=== PATIENT | female | born 1965 | race Caucasian/White ===

== ENCOUNTER 2018-11-22 18:57 | Inpatient (IN) | payer MEDICARE, MEDICAID ==
[~2018-11-22] VITALS: Ht 160 cm; Wt 71.8 kg
[~2018-11-22 18:57] MED LIST: CANA300T PO; GLIM4TAB4 PO; HUM7525 SQ; LEVO150T PO; LISI-640 PO; LOVA10TA PO; OXYC-145 PO
[2018-11-22] MEDS ORDERED: normal saline 1000ML IV soln IVB ONE ×2 (19:15→21:05)
[2018-11-22] MEDS ORDERED: diltiazem 5mg/ml 5ml inj. IV ONE (19:25)
[2018-11-22 19:34] LABS: BASOPHILS % (AUTO) 0.2 % (0-1); EOSINOPHILS % (AUTO) 0.4 % (0-6); HEMATOCRIT 38.7 % (35.0-45.0); LYMPHOCYTES # (AUTO) 1.5 X10'3 (1.1-4.8); LYMPHOCYTES % (AUTO) 11.5 % (21-51); MEAN CORPUSCULAR HEMOGLOBIN 29.9 PG (27.0-31.0); MEAN CORPUSCULAR HGB CONC 33.5 g/dL (33.0-36.5); MEAN CORPUSCULAR VOLUME 89.3 FL (78-98); MEAN PLATELET VOLUME 7.9 FL (7.4-10.4); MONOCYTES % (AUTO) 8.1 % (2-12); NEUTROPHILS # (AUTO) 10.3 X10'3 (1.8-7.7); NEUTROPHILS % (AUTO) 79.8 % (42-75); PLATELET COUNT 238 X10'3 (140-440); RED BLOOD COUNT 4.33 X10'6 (4.20-5.60); RED CELL DISTRIBUTION WIDTH 11.9 % (11.5-14.5)
[2018-11-22 19:47] LABS: ALANINE AMINOTRANSFERASE 42 U/L (12-78); ALBUMIN 3.3 G/DL (3.4-5.0); ALBUMIN/GLOBULIN RATIO 0.7 (1.1-1.5); ALKALINE PHOSPHATASE 90 IU/L (46-116); ANION GAP 10 (8-16); ASPARTATE AMINO TRANSFERASE 20 U/L (10-37); BILIRUBIN,TOTAL 0.4 MG/DL (0.1-1.0); BLOOD UREA NITROGEN 24 MG/DL (7-18); BUN/CREATININE RATIO 26.7 (6.6-38.0); CALCIUM 9.5 MG/DL (8.5-10.1); CHLORIDE 102 MMOL/L (99-107); GLUCOSE 158 MG/DL (70-104); POTASSIUM 3.6 MMOL/L (3.5-5.1); SODIUM 141 MMOL/L (135-145); TOTAL CARBON DIOXIDE 28.6 MMOL/L (24-32); TOTAL PROTEIN 8.3 G/DL (6.4-8.2); eGFR 66 ML/MIN
--- NOTE | 2018-11-22 20:10 | NUR ---
pt up to bsc to void. mod assist required.
[2018-11-22] MEDS ORDERED: CefTRIAXone 2gm/D5W 50ml 50 ML IV ONE (20:25)
[2018-11-22] MEDS ORDERED: diltiazem-D5W 125mg/125ml 125 ML IV SCH (20:25)
[2018-11-22] MEDS ORDERED: diltiazem-NS 100mg/100ml 125 ML IV SCH (20:28)
[2018-11-22] MEDS ORDERED: diltiazem-NS 100mg/100ml 100 ML IV SCH (20:41)
[2018-11-22 21:06] LABS: CLARITY,URINE CLOUDY (Clear); COLOR,URINE YELLOW (Yellow); GLUCOSE, URINE 100 mg/dl (Neg); KETONES,URINE NEGATIVE (Neg); LEUKOCYTE ESTERASE ,URINE SMALL (Neg); NITRITES, URINE NEGATIVE (Neg); OCCULT BLOOD,URINE MODERATE (Neg); PH,URINE 5.5 (4.8-8.0); PROTEIN,URINE TRACE mg/dl (Neg); UROBILINOGEN,URINE 0.2 E.U/dL (0.2-1.0)
[2018-11-22 21:09] LABS: UA COLLECTION TYPE OTHER
[2018-11-22 21:12] LABS: BACTERIA,URINE 3+ /HPF (Neg); MUCUS STRANDS NONE SEEN /LPF (Neg); SQUAMOUS EPITHELIAL CELL,UR MODERATE /LPF (FEW); WBC,URINE 30-50 /HPF (0-4)
[2018-11-22] MEDS ORDERED: normal saline 1000ML IV soln IV ONE (21:30)
[2018-11-22] MEDS ORDERED: GLIM2TAB3 PO (21:38)
[2018-11-22] MEDS ORDERED: METO25TA6 PO (21:38)
[2018-11-22] MEDS ORDERED: MELA3TAB64 PO (21:38)
[2018-11-22] MEDS ORDERED: ATOR-2 PO (21:38)
[2018-11-22] MEDS ORDERED: BACL20TA7 PO (21:38)
[2018-11-22] MEDS ORDERED: OXYC5TAB2 PO (21:38)
[2018-11-22] MEDS ORDERED: DOCU-267 PO (21:38)
[2018-11-22] MEDS ORDERED: LEVO112T5 PO (21:38)
[2018-11-22] MEDS ORDERED: ASPI-1130 PO (21:38)
--- NOTE | 2018-11-22 21:39 | NUR ---
PT TO BE ADMITTED , NOW AWAITING HOSPITALIST. LARISA GAVIRIA IN TO SPEAK WITH PT AND ABOUT ADMISSION. PT RECEIVING CARDIZIEM GTT AND HR REMAINS 120. PROVIDER REPORTS HE WILL DC THE CARDIZIEM HE BELIEVES THE CAUSE OF HER TACHYCARDIA IS INFECTION AND UTI. GTT STOPPED. PT RECEIVING RECEFIN. REMAINS AT [facility].
[2018-11-22] MEDS ORDERED: dextrose 50%-water 50ml dispensing syringe IV PRN ×2 (23:20)
[2018-11-22] MEDS ORDERED: magnesium hydroxide 30ml (MOM) UD suspension PO PRN (23:20)
[2018-11-22] MEDS ORDERED: oxyCODONE IR 5mg (immed. release) tablet PO PRN (23:20)
[2018-11-22] MEDS ORDERED: dextrose ORAL solution 15 GM/59 ML bottle PO PRN ×2 (23:20)
[2018-11-22] MEDS ORDERED: glucagon, human recombinant 1mg kit SUBCUT PRN (23:20)
[2018-11-22] MEDS ORDERED: acetaminophen 325mg tablet PO PRN (23:20)
[2018-11-22] MEDS ORDERED: ondansetron/PF 4mg/2ml inj IV PRN (23:20)
[2018-11-22] MEDS ORDERED: MESSAGE TO PHARMACY PO ONE (23:20)
[2018-11-22] MEDS ORDERED: mag hydrox/Alum hydrox/simeth 30ml oral suspension PO PRN (23:20)
[2018-11-22 23:46] LABS: HEMOGLOBIN A1C 6.6 % (4.5-6.2)
[2018-11-23] VITALS (7 sets, daily range): BP systolic 112–160; BP diastolic 76–93
[2018-11-23] MEDS: normal saline 1000ml 1,000 ML IV SCH ×2 (00:13→09:29)
--- NOTE | 2018-11-23 01:30 | NUR ---
I have received report from DENISSE Carvajal in ER and had the opportunity to ask questions and assume patient care. Awaiting patient arrival to PCU.
--- NOTE | 2018-11-23 03:54 | NUR ---
Patient arrived to PCU via gurney from ED. Patient ambulated from gurney to bed with 2 person assist due to right sided deficits from past stroke 3 years ago. Patient on room air, placed on telemetry unit 40, and is stable at this time. Patient states she is very tired and would like to answer DART questions tomorrow when more rested and is here.
[2018-11-23] MEDS ORDERED: LORazepam 2 mg/ml vial IV PRN (06:10)
--- NOTE | 2018-11-23 06:10 | NUR ---
Patient in room PCU 3015. I have received report from Martha SALCEDO and had the opportunity to ask questions and assume patient care.
[2018-11-23 06:35] LABS: BASOPHILS % (AUTO) 0.2 % (0-1); EOSINOPHILS % (AUTO) 0.3 % (0-6); HEMATOCRIT 36.9 % (35.0-45.0); HEMOGLOBIN 12.6 g/dl (12.0-16.0); LYMPHOCYTES # (AUTO) 2.3 X10'3 (1.1-4.8); LYMPHOCYTES % (AUTO) 29.8 % (21-51); MEAN CORPUSCULAR HEMOGLOBIN 30.4 PG (27.0-31.0); MEAN CORPUSCULAR HGB CONC 34.1 g/dL (33.0-36.5); MEAN CORPUSCULAR VOLUME 89.2 FL (78-98); MEAN PLATELET VOLUME 7.9 FL (7.4-10.4); MONOCYTES # (AUTO) 0.5 X10'3 (0-0.9); MONOCYTES % (AUTO) 6.2 % (2-12); NEUTROPHILS # (AUTO) 4.8 X10'3 (1.8-7.7); NEUTROPHILS % (AUTO) 63.5 % (42-75); PLATELET COUNT 225 X10'3 (140-440); RED BLOOD COUNT 4.14 X10'6 (4.20-5.60); RED CELL DISTRIBUTION WIDTH 11.8 % (11.5-14.5); WHITE BLOOD COUNT 7.6 X10'3 (4.5-11.0)
--- NOTE | 2018-11-23 06:53 | NUR ---
Problems reprioritized. Patient report given, questions answered & plan of care reviewed with DENISSE Thomas.
[2018-11-23 07:10] LABS: ALANINE AMINOTRANSFERASE 37 U/L (12-78); ALBUMIN 2.9 G/DL (3.4-5.0); ALBUMIN/GLOBULIN RATIO 0.6 (1.1-1.5); ALKALINE PHOSPHATASE 84 IU/L (46-116); ANION GAP 10 (8-16); ASPARTATE AMINO TRANSFERASE 32 U/L (10-37); BILIRUBIN,TOTAL 0.4 MG/DL (0.1-1.0); BLOOD UREA NITROGEN 14 MG/DL (7-18); BUN/CREATININE RATIO 16.9 (6.6-38.0); CALCIUM 8.6 MG/DL (8.5-10.1); CHLORIDE 109 MMOL/L (99-107); CREATININE 0.83 MG/DL (0.40-0.90); GLUCOSE 136 MG/DL (70-104); POTASSIUM 3.5 MMOL/L (3.5-5.1); SODIUM 145 MMOL/L (135-145); TOTAL CARBON DIOXIDE 26.4 MMOL/L (24-32); TOTAL PROTEIN 7.6 G/DL (6.4-8.2); eGFR 72 ML/MIN
[2018-11-23] MEDS: heparin, porcine 5000 units/ml vial SQ SCH ×2 (08:04→20:33)
[2018-11-23] MEDS: docusate sod 100mg capsule PO SCH (08:04)
[2018-11-23] MEDS: metoprolol tartrate 25mg tablet PO SCH (08:06)
[2018-11-23] MEDS: atorvastatin 20mg tablet PO SCH (08:07)
[2018-11-23] MEDS: baclofen 10mg tablet PO SCH ×4 (08:07→23:22)
[2018-11-23] MEDS: levoTHYROXINE 112mcg tablet PO SCH (08:07)
[2018-11-23] MEDS: CefTRIAXone/D5W-Rocephin 1gm 50 ML IV SCH (08:08)
[2018-11-23] MEDS ORDERED: potassium Cl 20 mEq SR tablet PO PRN (09:35)
[2018-11-23] MEDS ORDERED: magnesium Cl slow-release 64mg tablet PO PRN (09:35)
[2018-11-23] MEDS ORDERED: potassium CL 10mEq/100ml bag 100 ML IV PRN (09:35)
[2018-11-23] MEDS ORDERED: magnesium 4gm in 100ml NS 100 ML IV PRN (09:35)
--- NOTE | 2018-11-23 09:36 | NUR ---
PAGER ID: [phone] MESSAGE: DENISSE Thomas ext [phone], [phone], DANUTA Benton up to 3.1.
[2018-11-23] MEDS ORDERED: FLU VACC QS2019-20 36MOS UP/PF 60 MCG/0.5 ML SYRINGE IMVAC ONE (14:15)
--- NOTE | 2018-11-23 14:53 | NUR ---
DM consult: Patient's A1c is 6.6, DM ed not warranted at this time. Will continue to follow. Addendum: 11/23/18 at [address] Amended: Links added.
--- NOTE | 2018-11-23 16:11 | NUR ---
Student documentation: I have reviewed and agree with all interventions, assessments performed and documented by Kaylan Echevarria LVN. Addendum: 11/23/18 at 1617 by Gardenia Pride - Instructwilliams SALCEDO Amended: Links added.
--- NOTE | 2018-11-23 18:00 | NUR ---
Patient in room PCU 3015. I have received report from DENISSE Thomas and had the opportunity to ask questions and assume patient care.
--- NOTE | 2018-11-23 18:14 | NUR ---
Problems reprioritized. Patient report given, questions answered & plan of care reviewed with DENISSE Smart. Patient currently resting in bed,stable at shift change
--- NOTE | 2018-11-23 18:15 | NUR ---
Patient in room PCU 3015. I have received report from DENISSE Thomas and had the opportunity to ask questions and assume patient care.
[2018-11-23] MEDS: Melatonin 3mg tablet PO SCH (20:32)
[2018-11-23] MEDS: aspirin 81mg tablet.DR PO SCH (20:32)
[2018-11-23] MEDS: lactobacillus rhamnosus 10,000 MMU CELLS/CAPSULE PO SCH (20:33)
[2018-11-24 02:00] VITALS: BP 121/77
[2018-11-24] MEDS: normal saline 1000ml 1,000 ML IV SCH ×3 (04:22→15:47)
[2018-11-24 06:00] VITALS: BP 142/81
--- NOTE | 2018-11-24 06:00 | NUR ---
Preceptee documentation: I have reviewed and agree with all interventions, assessments performed and documented by DENISSE Carver .
[2018-11-24 06:04] LABS: BASOPHILS % (AUTO) 0.3 % (0-1); EOSINOPHILS % (AUTO) 0.7 % (0-6); HEMOGLOBIN 12.6 g/dl (12.0-16.0); LYMPHOCYTES # (AUTO) 2.2 X10'3 (1.1-4.8); LYMPHOCYTES % (AUTO) 33.1 % (21-51); MEAN CORPUSCULAR VOLUME 88.3 FL (78-98); MONOCYTES # (AUTO) 0.4 X10'3 (0-0.9); MONOCYTES % (AUTO) 5.3 % (2-12); NEUTROPHILS # (AUTO) 4.1 X10'3 (1.8-7.7); NEUTROPHILS % (AUTO) 60.6 % (42-75); PLATELET COUNT 241 X10'3 (140-440); RED BLOOD COUNT 4.19 X10'6 (4.20-5.60); RED CELL DISTRIBUTION WIDTH 11.9 % (11.5-14.5); WHITE BLOOD COUNT 6.7 X10'3 (4.5-11.0)
--- NOTE | 2018-11-24 06:15 | NUR ---
Patient in room PCU 3015. I have received report from DENISSE Smart and had the opportunity to ask questions and assume patient care.
--- NOTE | 2018-11-24 06:17 | NUR ---
Problems reprioritized. Patient report given, questions answered & plan of care reviewed with DENISSE Nelson.
[2018-11-24 07:13] LABS: ALANINE AMINOTRANSFERASE 34 U/L (12-78); ALBUMIN 2.6 G/DL (3.4-5.0); ALBUMIN/GLOBULIN RATIO 0.6 (1.1-1.5); ALKALINE PHOSPHATASE 75 IU/L (46-116); ANION GAP 10 (8-16); ASPARTATE AMINO TRANSFERASE 31 U/L (10-37); BILIRUBIN,TOTAL 0.3 MG/DL (0.1-1.0); BLOOD UREA NITROGEN 8 MG/DL (7-18); BUN/CREATININE RATIO 11.3 (6.6-38.0); CALCIUM 8.9 MG/DL (8.5-10.1); CHLORIDE 107 MMOL/L (99-107); CREATININE 0.71 MG/DL (0.40-0.90); GLUCOSE 111 MG/DL (70-104); MAGNESIUM 1.9 MG/DL (1.5-2.4); PHOSPHORUS 2.9 MG/DL (2.3-4.5); SODIUM 145 MMOL/L (135-145); TOTAL CARBON DIOXIDE 28.2 MMOL/L (24-32); TOTAL PROTEIN 6.9 G/DL (6.4-8.2); eGFR 87 ML/MIN
[2018-11-24] MEDS: CefTRIAXone/D5W-Rocephin 1gm 50 ML IV SCH (07:49)
[2018-11-24] MEDS: levoTHYROXINE 112mcg tablet PO SCH (08:34)
[2018-11-24] MEDS: atorvastatin 20mg tablet PO SCH (08:34)
[2018-11-24] MEDS: baclofen 10mg tablet PO SCH ×3 (08:35→23:37)
[2018-11-24] MEDS: lactobacillus rhamnosus 10,000 MMU CELLS/CAPSULE PO SCH ×2 (08:35→20:41)
[2018-11-24] MEDS: heparin, porcine 5000 units/ml vial SQ SCH ×2 (08:40→20:42)
[2018-11-24] MEDS: docusate sod 100mg capsule PO SCH (08:42)
[2018-11-24] MEDS: metoprolol tartrate 25mg tablet PO SCH (08:42)
--- NOTE | 2018-11-24 10:37 | NUR ---
order for PT eval and treat? pt would like to walk page to [facility]
[2018-11-24 11:00] VITALS: BP 127/81
--- NOTE | 2018-11-24 11:09 | NUR ---
order for PT eval and treat? pt would like to walk page to [facility]
[2018-11-24 15:00] VITALS: BP 133/86
[2018-11-24 18:00] VITALS: BP 136/83
--- NOTE | 2018-11-24 18:23 | NUR ---
Problems reprioritized. Patient report given, questions answered & plan of care reviewed with DENISSE Das.
[2018-11-24] MEDS: insulin Lispro (HumaLOG) vial - multi-dose SQ SCH (18:56)
[2018-11-24] MEDS: aspirin 81mg tablet.DR PO SCH (20:41)
[2018-11-24] MEDS: potassium Cl 20 mEq SR tablet PO PRN (20:41)
[2018-11-24] MEDS: Melatonin 3mg tablet PO SCH (20:41)
[2018-11-24 23:00] VITALS: BP 138/92
[2018-11-25] MEDS: potassium Cl 20 mEq SR tablet PO PRN (00:44)
[2018-11-25] MEDS: normal saline 1000ml 1,000 ML IV SCH ×3 (01:49→23:26)
[2018-11-25 03:00] VITALS: BP 142/88
[2018-11-25 06:00] VITALS: BP 145/92
--- NOTE | 2018-11-25 06:19 | NUR ---
Patient in room PCU 3015. I have received report from DENISSE Das and had the opportunity to ask questions and assume patient care. Patient currently sleeping in bed, bed locked and low, call light in reach, no acute distress, will continue to monitor.
--- NOTE | 2018-11-25 06:20 | NUR ---
Problems reprioritized. Patient report given, questions answered & plan of care reviewed with DENISSE Thomas.
[2018-11-25 06:23] LABS: BASOPHILS % (AUTO) 0.4 % (0-1); EOSINOPHILS # (AUTO) 0.1 X10'3 (0-0.9); EOSINOPHILS % (AUTO) 0.8 % (0-6); HEMATOCRIT 37.7 % (35.0-45.0); HEMOGLOBIN 12.9 g/dl (12.0-16.0); LYMPHOCYTES # (AUTO) 2.2 X10'3 (1.1-4.8); LYMPHOCYTES % (AUTO) 32.6 % (21-51); MEAN CORPUSCULAR HEMOGLOBIN 30.1 PG (27.0-31.0); MEAN CORPUSCULAR HGB CONC 34.2 g/dL (33.0-36.5); MEAN PLATELET VOLUME 8.2 FL (7.4-10.4); MONOCYTES # (AUTO) 0.3 X10'3 (0-0.9); MONOCYTES % (AUTO) 4.9 % (2-12); NEUTROPHILS # (AUTO) 4.1 X10'3 (1.8-7.7); NEUTROPHILS % (AUTO) 61.3 % (42-75); PLATELET COUNT 244 X10'3 (140-440); RED BLOOD COUNT 4.29 X10'6 (4.20-5.60); WHITE BLOOD COUNT 6.6 X10'3 (4.5-11.0)
[2018-11-25 07:30] LABS: ALANINE AMINOTRANSFERASE 35 U/L (12-78); ALBUMIN 2.8 G/DL (3.4-5.0); ALBUMIN/GLOBULIN RATIO 0.6 (1.1-1.5); ALKALINE PHOSPHATASE 79 IU/L (46-116); ANION GAP 10 (8-16); ASPARTATE AMINO TRANSFERASE 25 U/L (10-37); BILIRUBIN,TOTAL 0.4 MG/DL (0.1-1.0); BLOOD UREA NITROGEN 6 MG/DL (7-18); BUN/CREATININE RATIO 9.1 (6.6-38.0); CHLORIDE 106 MMOL/L (99-107); CREATININE 0.66 MG/DL (0.40-0.90); GLUCOSE 106 MG/DL (70-104); MAGNESIUM 1.9 MG/DL (1.5-2.4); PHOSPHORUS 2.9 MG/DL (2.3-4.5); POTASSIUM 3.9 MMOL/L (3.5-5.1); SODIUM 143 MMOL/L (135-145); TOTAL CARBON DIOXIDE 27.3 MMOL/L (24-32); TOTAL PROTEIN 7.4 G/DL (6.4-8.2); eGFR > 90 ML/MIN
[2018-11-25] MEDS: baclofen 10mg tablet PO SCH ×3 (08:26→23:23)
[2018-11-25] MEDS: atorvastatin 20mg tablet PO SCH (08:26)
[2018-11-25] MEDS: metoprolol tartrate 25mg tablet PO SCH (08:27)
[2018-11-25] MEDS: levoTHYROXINE 125mcg tablet PO SCH (08:27)
[2018-11-25] MEDS: lactobacillus rhamnosus 10,000 MMU CELLS/CAPSULE PO SCH ×2 (08:27→19:33)
[2018-11-25] MEDS: docusate sod 100mg capsule PO SCH (08:28)
[2018-11-25] MEDS: heparin, porcine 5000 units/ml vial SQ SCH ×2 (08:29→19:33)
[2018-11-25] MEDS: CefTRIAXone/D5W-Rocephin 1gm 50 ML IV SCH (08:29)
[2018-11-25 11:26] VITALS: BP 149/95
[2018-11-25] MEDS: insulin Lispro (HumaLOG) vial - multi-dose SQ SCH ×2 (13:17→19:37)
[2018-11-25 15:54] VITALS: BP 126/88
[2018-11-25 18:00] VITALS: BP 140/93
--- NOTE | 2018-11-25 18:10 | NUR ---
Problems reprioritized. Patient report given, questions answered & plan of care reviewed with DENISSE Das. Patient stable at shift change
[2018-11-25] MEDS: aspirin 81mg tablet.DR PO SCH (20:27)
[2018-11-25] MEDS: Melatonin 3mg tablet PO SCH (20:27)
[2018-11-25 23:00] VITALS: BP 142/93
[2018-11-26 03:00] VITALS: BP 147/88
[2018-11-26 06:00] VITALS: BP 147/92
--- NOTE | 2018-11-26 06:11 | NUR ---
Problems reprioritized. Patient report given, questions answered & plan of care reviewed with DENISSE Cardoso.
--- NOTE | 2018-11-26 06:18 | NUR ---
Patient in room PCU 3015. I have received report from DENISSE Das and had the opportunity to ask questions and assume patient care.
[2018-11-26] MEDS: normal saline 1000ml 1,000 ML IV SCH (06:26)
[2018-11-26 06:38] LABS: BASOPHILS % (AUTO) 0.3 % (0-1); EOSINOPHILS # (AUTO) 0.1 X10'3 (0-0.9); EOSINOPHILS % (AUTO) 1.2 % (0-6); HEMATOCRIT 36.6 % (35.0-45.0); HEMOGLOBIN 12.7 g/dl (12.0-16.0); LYMPHOCYTES # (AUTO) 2.2 X10'3 (1.1-4.8); LYMPHOCYTES % (AUTO) 39.1 % (21-51); MEAN CORPUSCULAR HGB CONC 34.5 g/dL (33.0-36.5); MEAN CORPUSCULAR VOLUME 86.9 FL (78-98); MEAN PLATELET VOLUME 7.8 FL (7.4-10.4); MONOCYTES # (AUTO) 0.3 X10'3 (0-0.9); MONOCYTES % (AUTO) 5.2 % (2-12); NEUTROPHILS % (AUTO) 54.2 % (42-75); PLATELET COUNT 272 X10'3 (140-440); RED BLOOD COUNT 4.22 X10'6 (4.20-5.60); RED CELL DISTRIBUTION WIDTH 11.9 % (11.5-14.5); WHITE BLOOD COUNT 5.5 X10'3 (4.5-11.0)
[2018-11-26 06:56] LABS: ALANINE AMINOTRANSFERASE 46 U/L (12-78); ALBUMIN 2.7 G/DL (3.4-5.0); ALBUMIN/GLOBULIN RATIO 0.7 (1.1-1.5); ALKALINE PHOSPHATASE 76 IU/L (46-116); ANION GAP 9 (8-16); ASPARTATE AMINO TRANSFERASE 33 U/L (10-37); BILIRUBIN,TOTAL 0.4 MG/DL (0.1-1.0); BLOOD UREA NITROGEN 9 MG/DL (7-18); BUN/CREATININE RATIO 13.4 (6.6-38.0); CALCIUM 8.5 MG/DL (8.5-10.1); CHLORIDE 107 MMOL/L (99-107); CREATININE 0.67 MG/DL (0.40-0.90); GLUCOSE 134 MG/DL (70-104); MAGNESIUM 1.8 MG/DL (1.5-2.4); PHOSPHORUS 3.2 MG/DL (2.3-4.5); POTASSIUM 3.4 MMOL/L (3.5-5.1); SODIUM 143 MMOL/L (135-145); TOTAL CARBON DIOXIDE 27.2 MMOL/L (24-32); TOTAL PROTEIN 6.8 G/DL (6.4-8.2); eGFR > 90 ML/MIN
[2018-11-26] MEDS: baclofen 10mg tablet PO SCH (08:57)
[2018-11-26] MEDS: levoTHYROXINE 125mcg tablet PO SCH (08:57)
[2018-11-26] MEDS: atorvastatin 20mg tablet PO SCH (08:57)
[2018-11-26] MEDS: docusate sod 100mg capsule PO SCH (08:57)
[2018-11-26] MEDS: metoprolol tartrate 25mg tablet PO SCH (08:58)
[2018-11-26] MEDS: heparin, porcine 5000 units/ml vial SQ SCH (08:59)
[2018-11-26] MEDS: CefTRIAXone/D5W-Rocephin 1gm 50 ML IV SCH (09:00)
[2018-11-26] MEDS: lactobacillus rhamnosus 10,000 MMU CELLS/CAPSULE PO SCH (09:03)
[2018-11-26] MEDS: insulin Lispro (HumaLOG) vial - multi-dose SQ SCH (09:08)
[2018-11-26] MEDS ORDERED: CEFD300C3 PO (10:20)
[2018-11-26] MEDS ORDERED: LACT1CAP26 PO (10:20)
[2018-11-26 11:00] VITALS: BP 131/92
[2018-11-26] MEDS ORDERED: potassium Cl 20 mEq SR tablet PO STA (11:15)
--- NOTE | 2018-11-26 14:38 | NUR ---
Patient discharged home via personal vehicle with family member and taken from unit via wheelchair. PIV removed prior to discharge with cannula intact. Pt and family member took all belongings including discharge instructions. Pt stated no further questions and verbalized teaching understanding. Pt prescriptions called into preferred [facility] for pickup. Pt potassium of 3.4 addressed with doctor and a total of 60 mEq of K Dexter given prior to discharge.
--- NOTE | 2018-11-26 14:42 | NUR ---
Student documentation: I have reviewed and agree with all interventions, assessments performed and documented by Sari Medel.
[2018-11-26] MEDS ORDERED: LEVO125T8 PO (17:22)
== END 2018-11-26 14:20 | disposition home health service (06) | DRG 871 ==
LOC: ER 18:58 → ED HOLD 23:24 → PCU 3S 11-23 01:26
PROVIDERS: ADMIT Internal Medicine; ATTEND Family Medicine
PROC: 3E02340 Introduction of Influenza Vaccine into Muscle, Percutaneous Approach (ICD-10-PCS; principal; 2018-11-23)
PROC: 4A10X4Z Monitoring of Central Nervous Electrical Activity, External Approach (ICD-10-PCS; 2018-11-23)
DX: A41.9 Sepsis, unspecified organism (principal); G93.41 Metabolic encephalopathy; E87.2 Acidosis; N39.0 Urinary tract infection, site not specified; Q24.0 Dextrocardia; Q25.47 Right aortic arch; E11.649 Type 2 diabetes mellitus with hypoglycemia without coma; B96.1 Klebsiella pneumoniae [K. pneumoniae] as the cause of diseases classified elsewhere; I48.91 Unspecified atrial fibrillation; E03.9 Hypothyroidism, unspecified; E78.5 Hyperlipidemia, unspecified; E87.6 Hypokalemia; I10 Essential (primary) hypertension; Z79.82 Long term (current) use of aspirin; Z79.84 Long term (current) use of oral hypoglycemic drugs; Z79.890 Hormone replacement therapy; Z79.899 Other long term (current) drug therapy; Z86.73 Personal history of transient ischemic attack (TIA), and cerebral infarction without residual deficits; Z98.891 History of uterine scar from previous surgery; Z23 Encounter for immunization; Z88.5 Allergy status to narcotic agent; Z91.030 Bee allergy status
CPT/HCPCS: 36415; 71045; 80053; 81001; 82948; 83036; 83605; 83735; 84100; 84145; 84443; 85025; 87040; 87077; 87081; 87088; 87186; 93005; 95816; 96365; 96375; 97161; 97530; 99291; G0378; J0696; J1644; J1815; J3490; J7030; Q2037

== ENCOUNTER 2019-01-26 23:07 | Emergency (ER) | payer MEDICARE, MEDICAID ==
[~2019-01-26] VITALS: Ht 160 cm; Wt 72.7 kg
[~2019-01-26 23:07] MED LIST changes: +ASPI-1130 PO; +ATOR-2 PO; +BACL20TA7 PO; -CANA300T PO; +DOCU-267 PO; +GLIM2TAB3 PO; -GLIM4TAB4 PO; -HUM7525 SQ; +LACT1CAP26 PO; +LEVO125T8 PO; -LEVO150T PO; -LISI-640 PO; -LOVA10TA PO; +MELA3TAB64 PO; +METO25TA6 PO; -OXYC-145 PO; +OXYC5TAB2 PO
[2019-01-26] MEDS ORDERED: normal saline 1000ML IV soln IVB ONE (23:35)
[2019-01-26 23:58] LABS: URINE HCG NEGATIVE (NEG)
[2019-01-26 23:59] LABS: CLARITY,URINE CLEAR (Clear); COLOR,URINE YELLOW (Yellow); GLUCOSE, URINE NEGATIVE (Neg); KETONES,URINE NEGATIVE (Neg); LEUKOCYTE ESTERASE ,URINE NEGATIVE (Neg); NITRITES, URINE NEGATIVE (Neg); OCCULT BLOOD,URINE NEGATIVE (Neg); PROTEIN,URINE NEGATIVE (Neg); UROBILINOGEN,URINE 0.2 E.U/dL (0.2-1.0)
[2019-01-27 00:05] LABS: UA COLLECTION TYPE NON-SPECIFIED
[2019-01-27 02:04] LABS: BASOPHILS % (AUTO) 0.2 % (0-1); EOSINOPHILS % (AUTO) 0.2 % (0-6); HEMATOCRIT 45.5 % (35.0-45.0); HEMOGLOBIN 15.4 g/dl (12.0-16.0); LYMPHOCYTES # (AUTO) 2.1 X10'3 (1.1-4.8); LYMPHOCYTES % (AUTO) 24.2 % (21-51); MEAN CORPUSCULAR HEMOGLOBIN 29.8 PG (27.0-31.0); MEAN CORPUSCULAR HGB CONC 33.9 g/dL (33.0-36.5); MEAN CORPUSCULAR VOLUME 87.7 FL (78-98); MEAN PLATELET VOLUME 8.4 FL (7.4-10.4); MONOCYTES # (AUTO) 0.4 X10'3 (0-0.9); MONOCYTES % (AUTO) 5.1 % (2-12); NEUTROPHILS # (AUTO) 6.1 X10'3 (1.8-7.7); NEUTROPHILS % (AUTO) 70.3 % (42-75); PLATELET COUNT 181 X10'3 (140-440); RED BLOOD COUNT 5.19 X10'6 (4.20-5.60); RED CELL DISTRIBUTION WIDTH 12.7 % (11.5-14.5); WHITE BLOOD COUNT 8.7 X10'3 (4.5-11.0)
[2019-01-27 02:16] LABS: ALANINE AMINOTRANSFERASE 63 U/L (12-78); ALBUMIN 4.2 G/DL (3.4-5.0); ALBUMIN/GLOBULIN RATIO 1.1 (1.1-1.5); ALKALINE PHOSPHATASE 96 IU/L (46-116); ANION GAP 8 (8-16); ASPARTATE AMINO TRANSFERASE 31 U/L (10-37); BILIRUBIN,TOTAL 0.5 MG/DL (0.1-1.0); BLOOD UREA NITROGEN 25 MG/DL (7-18); BUN/CREATININE RATIO 28.1 (6.6-38.0); CALCIUM 9.9 MG/DL (8.5-10.1); CHLORIDE 105 MMOL/L (99-107); CREATININE 0.89 MG/DL (0.40-0.90); GLUCOSE 176 MG/DL (70-104); POTASSIUM 4.2 MMOL/L (3.5-5.1); SODIUM 141 MMOL/L (135-145); TOTAL CARBON DIOXIDE 28.5 MMOL/L (24-32); TOTAL PROTEIN 7.9 G/DL (6.4-8.2); eGFR 67 ML/MIN
[2019-01-27] MEDS ORDERED: CLOT15CR5 TOP (02:23)
[2019-01-27] MEDS ORDERED: normal saline 1000ML IV soln IVB ONE (02:25)
[2019-01-27 03:07] LABS: URINE AMPHETAMINE SCREEN NEGATIVE (Neg); URINE BARBITUATE SCREEN NEGATIVE (Neg); URINE BENZODIAZEPINES SCREEN NEGATIVE (Neg); URINE CANNABINOID SCREEN NEGATIVE (Neg); URINE COCAINE SCREEN NEGATIVE (Neg); URINE METHADONE SCREEN NEGATIVE (Neg); URINE OPIATE SCREEN NEGATIVE (Neg); URINE PHENCYCLIDINE SCREEN NEGATIVE (Neg)
--- NOTE | 2019-01-27 04:14 | NUR ---
PT DENIES ANY CHEST PAIN/DISCOMFORT, SOB, OR PAIN. PT REMAINS MILDY TACHYCARDIC 110s, BUT STABLE. AWARE.
--- NOTE | 2019-01-27 04:35 | NUR ---
PENDING D-DIMER. AFTER MULTIPLE ATTEMPTS AT RETRIEVING BLOOD, PT REQUESTS TO GO HOME BC SHE STATES "I DON'T BELIEVE I HAVE A BLOOD CLOT BECAUSE I KNOW THEY HURT AND NOTHING HURTS". DR. JOSEPH NOTIFIED AND WILL COME TO BEDSIDE TO SPEAK TO PT.
[2019-01-27 05:07] VITALS: BP 153/95
== END 2019-01-27 05:11 | disposition left against medical advice (07) ==
LOC: ER 23:07
DX: B37.2 Candidiasis of skin and nail (principal); R00.0 Tachycardia, unspecified; R41.0 Disorientation, unspecified; R35.0 Frequency of micturition; I10 Essential (primary) hypertension; E11.9 Type 2 diabetes mellitus without complications; E03.9 Hypothyroidism, unspecified; Z98.890 Other specified postprocedural states; Z86.73 Personal history of transient ischemic attack (TIA), and cerebral infarction without residual deficits; Z88.5 Allergy status to narcotic agent; Z79.82 Long term (current) use of aspirin; Z79.899 Other long term (current) drug therapy
CPT/HCPCS: 36415; 71045; 80053; 80305; 81003; 81025; 83605; 84145; 84443; 85025; 96360; 99284; J7030

== ENCOUNTER 2025-01-14 18:30 | Inpatient (IN) | payer MEDICARE, MEDICAID ==
[~2025-01-14] VITALS: Ht 160 cm; Wt 78.2 kg
[~2025-01-14 18:30] MED LIST changes: -ASPI-1130 PO; +ASPI-1397 PO; +CLOT15CR35 TOP; +DOCU-262 PO; -DOCU-267 PO; -GLIM2TAB3 PO; +GLIM2TAB6 PO; +LOP25T PO; +MELA3TAB39 PO; -MELA3TAB64 PO; -METO25TA6 PO
--- NOTE | 2025-01-14 19:34 | Physician Documentation ---
History of Present Illness ~ Chief Complaint: Leg Pain Stated Complaint: GROUND LEVEL FALL Time Seen by MD: 19:31 Primary Medical Doctor: dr. kalpesh skaggs; ruma hays at [facility] HPI Patient presents to the emergency room for evaluation of right hip pain. The patient is normally ambulatory with a walker but otherwise wheelchair-bound since having a previous stroke. She is on blood thinners. Denies any head strike. While bowling at the alley she ended up falling resulting in her hip pain. Tetanus witin 5 years: Yes Medication Reconciliation Allergies: Coded Allergies: codeine (Verified Allergy, Unknown, 01/26/19) hydrocodone (Verified Allergy, Unknown, 01/26/19) Uncoded Allergies: BEES (Allergy, Unknown, 08/11/15) VICODINE (Allergy, Unknown, 01/14/25) Scheduled Aspirin (Aspirin EC), 1 TAB PO HS, (Reported) Atorvastatin Calcium (Atorvastatin Calcium), 1 TAB PO DAILY, (Reported) Baclofen (Baclofen), 1 TAB PO Q8H, (Reported) Clotrimazole (Clotrimazole), 1 APPLIC TOP Q12H Docusate Sodium (Dok), 1 TAB PO DAILY, (Reported) Glimepiride (Glimepiride), 1 TAB PO DAILY, (Reported) Lactobacillus Rhamnosus (Culturelle), 10,000 MMU PO Q12H Levothyroxine Sodium (Levothyroxine Sodium), 1 TAB PO DAILY Melatonin (Melatonin), 1 TAB PO HS, (Reported) Metoprolol Tartrate* (Lopressor tablet*), 1 TAB PO DAILY, (Reported) Scheduled PRN Oxycodone Hcl (Roxicodone), 1 TAB PO DAILY PRN for pain, (Reported) Past Medical History Past Medical History: CVA/TIA/Stroke, Hypertension, UTI, Diabetes, Hyperthyroidism Past Surgical History: Alcohol Use: None Drug Use: none Lives with: Family Lives In: Home Occupation: employed Review of Systems ROS All review of systems negative except as per HPI Physical Exam Vital Signs: Temperature: 98.4, Source: Oral, Heart Rate: 128, Respiratory Rate: 18, BP: 143/84, Pulse Oximetry: 94, Weight: 78.180 Oxygen Flow Rate: 0 Physical Exam General: Patient is awake, alert, oriented x4 in moderate distress. Head: Normocephalic and atraumatic. Eyes: Conjunctival normal. EOMI. PERRL. ENT: Mucous membranes moist. Neck: Supple, trachea is midline. Chest: Clear to auscultation bilaterally without rales, rhonchi, or wheezes. There is no accessory muscle use or retractions. Cardiac: RRR without murmurs, gallops, or rubs. Extremities: Positive log roll to right hip. Patient holding right hip and flexed position secondary to pain. Neurovascularly intact. Progress Progress Note I have spoken with on-call orthopedist, Dr. Healy, who is aware of patient Results/Orders Results/Orders Orders - TYLER LEGER MD Tib/Fib (01/14/25 19:33) Hip Unilateral 2-3 Views (01/14/25 19:33) Knee Limited (Ap/Lat) (01/14/25 18:36) Cbc/Diff (01/14/25 19:37) PTT (01/14/25 19:37) Pt Inr (01/14/25 19:37) Urinalysis, Cult If Indicated (01/14/25 19:37) Type And Screen (01/14/25 19:37) Nothing By Mouth (01/15/25 Breakfast) Monitor (01/14/25 19:37) Saline Lock (01/14/25 19:37) Normal Saline 1000ml (0.9% Sodium Chlori (01/14/25 19:40) Acetaminophen 1,000mg/100ml Iv (Ofirmev (01/14/25 20:15) Page Hospitalist (01/14/25 20:16) Fill Out Med Reconciliation (01/14/25 20:16) Completed Orders - TYLER LEGER MD Tib/Fib (01/14/25 19:33) Hip Unilateral 2-3 Views (01/14/25 19:33) Knee Limited (Ap/Lat) (01/14/25 18:36) Fentanyl/Pf (Fentanyl 0.05 Mg/Ml Syringe (01/14/25 19:40) Ondansetron Inj. (Zofran 4mg/2ml Vial) (01/14/25 19:40) BMP (01/14/25 19:37) Electrocardiogram (01/14/25 19:37) Medications Received in ER Medications (Trade) Dose Ordered Sig/Elaina Route PRN Reason Start Time Stop Time Status Last Admin Dose Admin (fentaNYL 0.05 MG/ML syringe) 75 mcg ONCE ONCE IV 01/14/25 19:40 01/14/25 19:41 DC 01/14/25 20:03 75 MCG (Zofran 4mg/2ml vial) 4 mg ONCE ONCE IV 01/14/25 19:40 01/14/25 19:41 DC 01/14/25 20:03 4 MG Sodium Chloride 1,000 ml @ 1,000 mls/hr ONCE ONCE IV 01/14/25 19:40 01/14/25 20:39 01/14/25 20:09 1,000 MLS/HR Vital Signs 01/14/25 01/14/25 01/14/25 01/14/25 18:38 20:03 20:10 20:14 Temp 98.4 98.4 Pulse 128 127 Resp 18 24 22 22 B/P (MAP) 143/84 148/79 (102) Pulse Ox 94 98 O2 Flow Rate 0 2.0 Laboratory Tests Test 01/14/25 19:56 CBC Comment Coagulation Comments Sodium Level 139 Potassium Level 3.9 Chloride Level 102 Carbon Dioxide Level 28.2 Anion Gap 9 Blood Urea Nitrogen 24 H Creatinine 1.03 H Estimated GFR/1.73 m2 55 BUN/Creatinine Ratio 23.3 H Glucose Level 394 H Calcium Level 9.5 Albumin 3.7 Chemistry Comments EKG/XRAY/CT/US/VASC/MRI Bone/Soft Tissue X-Ray (Ext.) : Additional Comment X-ray of right hip interpreted by myself is positive for right hip fracture. No dislocation or foreign bodies appreciated. Medical Decision Making Additional information obtaine: old records Findings Patient presents to the emergency room for evaluation of right hip pain. Differentials include but are not limited to fractures, dislocation, sciatica, soft tissue injury therefore imaging performed which was positive for hip fracture. Pain medicine ordered. Orthopedist to be consulted. General Diff Dx:Considerations: Include: Abrasion, Contusion, Fracture, Hematoma, Laceration, Malunion, Neurovascular injury, Open fracture, Sprain, Ulcer, Other Knee Diff Dx:Considerations: Include: Abrasion, Arthritis, Contusion, DJD, Fracture-femur, Fracture-fibula, Fracture-patella, Fracture-tibia, Gout, Hematoma, Laceration, Meniscus injury, Neurovascular injury, Open fracture, Rheumatoid arthritis, Septic, Sprain, Sprain-MCL, Sprain-LCL, Sprain-ACL, Sprain-PCL, Other Ankle Diff Dx:Considerations: Include: Abrasion, Arthritis, Contusion, DJD, Fracture-metatarsal, Fracture-fibula, Fracture-tarsal, Fracture-tibia, Gout, Hematoma, Laceration, Malunion, Neurovascular injury, Nonunion, Open fracture, Osteomyelitis, Rheumatoid arthritis, Sprain, Septic, Ulcer, Other Foot Diff Dx:Considerations: Include: Abrasion, Arthritis, Cellulitis, Contusion, Dislocation, DJD, Fracture-metatarsal, Fracture-phalynx, Fracture- tarsal, Gout, Hematoma, Ingrown toenail, Laceration, Malunion, Neurovascular injury, Open fracture, Paronychia, Puncture, Rheumatoid, Sprain, Septic, Subungual hematoma, Ulcer, Other Toe Diff Dx:Considerations: Include: Abrasion, Cellulitis, Contusion, Dislocation, Felon, Fracture, Hematoma, Laceration, Neurovascular injury, Open fracture, Paronychia, Subungual hematoma, Other Departure Admitted to Inpatient Unit: yes, to hospitalist Impression: Primary Impression: Closed right hip fracture Referrals: NO PRIMARY CARE PROVIDER (PCP) Signature Scribe Signature: No scribe Attestation: The note accurately reflects work and decisions made by me.Tyler Leger MD 01/14/25 20:17 TYLER LEGER MD Jan 14, 2025 19:34
--- NOTE | 2025-01-14 19:52 | ELECTROCARDIOGRAPH REPORT ---
[facility] Test Date: 2025-01-14 Test Time: 19:50:15 Pat Name: LENORE HAYES Department: [facility]-ER Patient ID: [facility]-[id number] Room: ORTHO [facility] Gender: F Case Therapist: : 1965 Requested By: TOVA RENTERIA Order Number: [id number] Reading MD: Dr. ROHAN Encarnacion Measurements Intervals [place] Rate: 127 P: 23 CO: 153 QRS: -3 QRSD: 95 T: 14 QT: 288 QTc: 419 Interpretive Statements Sinus tachycardia Anteroseptal infarct, age indeterminate Baseline wander in lead(s) II Electronically Signed On 01-15-2025 17:34:[address] ROHAN Encarnacion Please click the below link to view image of tracing.
[2025-01-14] MEDS: ondansetron/PF 4mg/2ml inj IV ONE (20:03)
[2025-01-14] MEDS: fentaNYL/PF 50MCG/1 ML 2ML syringe IV ONE (20:03)
[2025-01-14] MEDS: normal saline 1000ml 1,000 ML IV ONE (20:09)
[2025-01-14 20:14] LABS: CREATININE 1.03 MG/DL (0.40-0.90); MEAN PLATELET VOLUME 7.9 FL (7.4-10.4); RED CELL DISTRIBUTION WIDTH 12.7 % (11.5-14.5); TOTAL CARBON DIOXIDE 28.2 MMOL/L (24-32); eCRCL 49 ML/MIN; eGFR 55 ML/MIN
--- NOTE | 2025-01-14 20:17 | RADIOLOGY REPORT ---
EXAM: DI CHEST,SINGLE VIEW TECHNIQUE: Single frontal chest radiograph CLINICAL HISTORY: FALL COMPARISON: None FINDINGS/IMPRESSION: The lungs are clear. The cardiomediastinal silhouette is unremarkable. Median sternotomy changes are noted. No pleural effusion or pneumothorax. No acute osseous abnormality.
[2025-01-14 20:18] LABS: APTT 24 SECONDS (22-32); INR 1.0 INR
[2025-01-14] MEDS ORDERED: AMLO10TA13 PO (20:23)
[2025-01-14] MEDS ORDERED: CELE-127 PO (20:23)
[2025-01-14] MEDS ORDERED: CLOP75TA34 PO (20:23)
[2025-01-14] MEDS ORDERED: LEVO100T9 PO (20:23)
--- NOTE | 2025-01-14 20:30 | RADIOLOGY REPORT ---
EXAM: DI TIB/FIB 2 VWS INDICATION: LEG PAIN RIGHT TECHNIQUE: 2 views of the right tibia/fibula COMPARISON: None FINDINGS/IMPRESSION: No radiographic evidence of an acute osseous abnormality. Diffusely decreased bone mineral density. Hardware placement along the ankle.
--- NOTE | 2025-01-14 20:31 | RADIOLOGY REPORT ---
EXAM: DI KNEE LIMITED (AP/LAT) INDICATION: KNEE PAIN RIGHT TECHNIQUE: 2 views of the right knee COMPARISON: None FINDINGS: No radiographic evidence of an acute osseous abnormality. There is no acute fracture, osseous malalignment, or aggressive focal osseous lesion. There is no radiographically apparent joint space narrowing. No joint effusion. IMPRESSION: 1. No radiographic evidence of an acute osseous abnormality.
--- NOTE | 2025-01-14 20:32 | RADIOLOGY REPORT ---
EXAM: DI HIP UNILATERAL 2-3 VIEWS INDICATION: HIP PAIN RIGHT TECHNIQUE: 3 views of the right hip COMPARISON: None FINDINGS/IMPRESSION: Right subcapital femoral neck fracture with evidence of significant displacement and proximal migration of the distal femoral fragment. Diffusely decreased bone mineral density.
[2025-01-14] MEDS: acetaminophen 1,000mg/100ml IV 100 ML IV ONE (20:34)
[2025-01-14] MEDS ORDERED: magnesium Cl slow-release 64mg tablet PO PRN (20:35)
[2025-01-14] MEDS ORDERED: potassium Cl 20 mEq SR tablet PO PRN ×2 (20:35)
[2025-01-14] MEDS ORDERED: HYDROcodone/acetaminophen 10/325mg tab PO PRN (20:35)
[2025-01-14] MEDS ORDERED: magnesium sulf-water 4G/100mL 100 ML IV PRN (20:35)
[2025-01-14] MEDS ORDERED: HYDROcodone/acetaminophen 5mg/325mg tablet PO PRN (20:35)
[2025-01-14] MEDS ORDERED: potassium Cl 40MEQ/1/2NS 520ml 520 ML IV PRN (20:35)
[2025-01-14] MEDS ORDERED: magnesium sulf-water 2g/50mL 50 ML IV PRN (20:35)
--- NOTE | 2025-01-14 20:52 | HISTORY AND PHYSICAL-Residence ---
History & Physical Providers to CC Resident Creating Document: HANNAH MARTINEZ RES CC: ROSANA BALLESTEROS MD ~ History of Present Illness Primary Medical Doctor: dr. kalpesh skaggs; ruma sanchezer at [facility] Reason for Admit\Complaint: Right hip pain followed by ground level fall at 7:00 p.m. History of Present Illness 60-year-old female with history of CVA, right hemiparesis, wheelchair-bound, hypertension, type 2 diabetes mellitus, hyperlipidemia, hypothyroidism presented to the ER with chief complaints of right hip pain after fall. Patient stated she was at the [facility], and she was trying to use her walker when she slipped and fell down on her right hip. She denies head strike. Denies loss of consciousness/lightheadedness. Denies any recent falls. Currently pain is 10/over 10 over the right hip even after receiving fentanyl 2 hours ago. She was never diagnosed with osteopenia/osteoporosis, she takes vitamin-D and calcium at home. Allergies: Coded Allergies: codeine (Verified Allergy, Unknown, 01/26/19) hydrocodone (Verified Allergy, Unknown, 01/26/19) Uncoded Allergies: BEES (Allergy, Unknown, 08/11/15) VICODINE (Allergy, Unknown, 01/14/25) Home Medications Home Medications Active Clotrimazole 15 Gm Cream.gm. 1 Applic TOP Q12H 7 Days Reported Levothyroxine Sodium 100 Mcg Tablet 1 Tab PO DAILY Amlodipine Besylate 10 Mg Tablet 1 Tab PO DAILY Celecoxib 200 Mg Capsule 1 Tab PO BID Clopidogrel (Clopidogrel Bisulfate) 75 Mg Tablet 1 Tab PO DAILY Melatonin 3 Mg Tablet 5 Mg PO HS Dok (Docusate Sodium) 100 Mg Capsule 1 Tab PO DAILY Lopressor tablet* (Metoprolol Tartrate) 25 Mg Tablet 50 Mg PO DAILY Aspirin EC (Aspirin) 81 Mg Tablet.dr 1 Tab PO HS Roxicodone (Oxycodone Hcl) 5 Mg Tablet 1 Tab PO DAILY PRN Glimepiride 2 Mg Tablet 1 Tab PO BID TAKE ONLY IF BLOOD SURAG IS ABOVE 95 TAKE TWO TABS IN AM, ONE TAB AT NIGHT Atorvastatin Calcium 80 Mg Tablet 40 Mg PO HS Past Medical History Past Medical History Hypertension Type 2 diabetes mellitus Hyperlipidemia Hypothyroidism CVA wheelchair-bound Anomalous aortic archH Past Surgical History Surgical History Comment Sternotomy done for some chest wall injury long time ago Past Social History Social History Comment Does not smoke, does not drink alcohol, denies illicit drug use Uses wheelchair for ambulation Lives by herself, Alcohol Use: None Drug Use: None Lives with: Family Lives In: Home Occupation: employed ROS ROS ROS Constitutional: No fever, dizziness, weakness. no change in appetite/weight HEENT: No blurring of the vision, No sore throat, epistaxis, tinnitus Cardiovascular: No chest pain/discomfort, palpitations, syncope. No pedal edema Respiratory: No sob, cough,, hemoptysis Gastrointestinal: No abdominal pain, nausea, vomiting. No diarrhea, constipation, melena. Genitourinary: No frquency, urgency, incontinence, nocturia. No dysuria, hematuria Musculoskeletal: Complaining of right hip pain Endocrine: No fatigue, polydipsia, polyuria. No heat or cold intolerance Neurologic: No headache, vertigo. No weakness, numbness or tingling of extremities Psychiatric: No hallucinations/delusions, no anhedonia, no suicidal ideation\ Hematologic: No bleeding or bruises Reviewed in full. All negative except for pertinent positives in HPI Exam Vitals: Vital Signs Date Time Temp Pulse Resp B/P (MAP) Pulse Ox O2 Delivery O2 Flow Rate FiO2 01/14/25 20:14 98.4 127 22 148/79 (102) 98 2.0 General: General: Pleasant elderly female, in apparent distress secondary to pain, AAO x4 Head: Normocephalic with an atraumatic Eyes: Pupils- 3mm, reacting to light, conjunctiva- anicteric Nose and throat: No polyps, septum- normal, no mucosal ulcers Neck: Supple, no lymphadenopathy, no carotid bruit Respiratory: No use of accessory muscles of respiration, Bilateral normal vesiscular breath sounds heard. No wheeze, rhochi or creps Cardiac: S1-S2 heard, rythm regular, no gallop/murmur Abdomen: non distended, no tenderness, no organomegaly, bowel sounds- heard Extremities: Tenderness over the right groin, no clubbing, no pedal edema, peripheral pulses- 2+ Skin: Skin over the forehead has greasy yellowish nodules likely seborrheic dermatitis warm and dry, no rash, no purpura Neuro: Right upper arm- flexion deformity contracture present, right lower extremity flexed, power is normal left side, no other new onset focal neurological deficit Diagnostic Data Last Recorded Lab Results: 01/14/25195501/14/251955 Diagnostic Data: Laboratory Tests Test 01/14/25 19:56 Prothrombin Time 10.1 SECONDS (9.0-12.0) INR International Normalized Ratio 1.0 INR Activated Partial Thromboplast Time 24 SECONDS (22-32) Coagulation Comments Advance Care Planning Advanced Care plannin - 30 Minutes (Code status is discussed with her and she opted for full code) Additional Plan 60-year-old female with history of CVA, right hemiparesis, wheelchair-bound, hypertension, type 2 diabetes mellitus, hyperlipidemia, hypothyroidism presented to the ER with chief complaints of right hip pain after fall. Right hip fracture Mechanical/ground level fall -x-ray showed right subcapital femoral neck fracture with evidence of significant displacement and proximal migration of distal femoral fragment -currently pain management with Dilaudid 0.5 mg for moderate pain and 1 mg for severe pain -Dr. Healy, orthopedic surgeon consulted in the ER. He will see the patient tomorrow morning -NPO after midnight Possible osteoporosis -x-ray showed diffusely decreased bone mineral density of the right hip -serum calcium levels normal, follow up on 25 hydroxy vitamin-D -initiated on vitamin-D and calcium supplementation -DEXA on outpatient basis and further treatment of osteoporosis with anabolic agents as patient had major osteoporotic fracture Hypertension -continue home dose of amlodipine 10 mg once daily, Lopressor 50 mg once daily Type 2 diabetes mellitus with A1c of 6.5 -current blood glucose 394, no signs of DKA, anion gap normal, bicarbonate normal -we will give 8 units of lispro one dose -started on lispro 6 units t.i.d. and supplemental insulin, adjust insulin based on blood glucose levels -held home meds of Liraglutide and glimepiride Sinus tachycardia -EKG showed sinus tach with low voltage complexes in the limb leads -suspect likely secondary to uncontrolled pain, and dehydration -continue pain meds as mentioned above and start on NS at 50 cc/hour -monitor heart rate and BP Hypothyroidism -follow up on TSH -continue levothyroxine 100 mcg once daily CVA with right hemiparesis Wheelchair-bound -hold Plavix 75 mg once daily until the surgery is done, continue atorvastatin 40 mg once daily Seborrheic dermatitis -continue topical clotrimazole Code Status: Full code Line/tube: PIV DVT prophylaxis: Lovenox on hold in anticipation of surgery, resume after surgery Nutrition: Heart healthy diet, NPO after midnight PT: Yes Prognosis: Guarded Disposition: Continue care in ortho floor Hannah Martinez MD PGY-3 resident Patient case discussed with resident, agree with the assessment and plan as above. Rosana Ballesteros MD Critical Care Date of Service: Jan 14, 2025 Billing Provider: ROSANA BALLESTEROS MD, HARIVARSHA, RES Jan 14, 2025 20:52 ROSANA BALLESTEROS MD Jan 15, 2025 14:28
[2025-01-14] MEDS ORDERED: glucagon, human recombinant 1mg kit SUBCUT PRN (21:05)
[2025-01-14] MEDS ORDERED: dextrose 50%-water 50ml dispensing syringe IV PRN ×2 (21:05)
[2025-01-14] MEDS ORDERED: DEXTROSE 15 GM of carb/4 tabs (each vial/BOTTLE has 4 tablets) PO PRN ×2 (21:05)
[2025-01-14] MEDS: normal saline 1000ml 1,000 ML IV SCH (21:50)
[2025-01-14] MEDS: HYDROmorphone/PF 0.2 MG/ML SYRINGE IV PRN (21:52)
[2025-01-14] MEDS ORDERED: INSULIN LISPRO 100 UNIT/ML INSULN.PEN MULTI-DOSE SQ SCH (22:15)
[2025-01-14] MEDS: INSULIN LISPRO 100 UNIT/ML INSULN.PEN MULTI-DOSE SQ SCH (22:51)
[2025-01-14] MEDS: HYDROmorphone inj. 0.5 MG/0.5 ML DISP.SYRIN IV ONE (23:13)
[2025-01-14 23:28] LABS: LEUKOCYTE ESTERASE ,URINE NEGATIVE (Neg); NITRITES, URINE NEGATIVE (Neg); OCCULT BLOOD,URINE NEGATIVE (Neg)
[2025-01-14 23:31] LABS: UA COLLECTION TYPE FOLEY CATH
[2025-01-14 23:56] LABS: SQUAMOUS EPITHELIAL CELL,UR FEW /LPF (FEW)
[2025-01-15] VITALS (12 sets, daily range): BP systolic 114–148; BP diastolic 55–88; PULSE 74–127; RESP 13–18; TEMP 96.6–99.4; O2SAT 91–96
[2025-01-15] MEDS: HYDROmorphone inj. 0.5 MG/0.5 ML DISP.SYRIN IV PRN (02:16)
[2025-01-15 06:06] LABS: MEAN PLATELET VOLUME 7.7 FL (7.4-10.4); RED CELL DISTRIBUTION WIDTH 12.8 % (11.5-14.5)
[2025-01-15 06:33] LABS: CREATININE 0.80 MG/DL (0.40-0.90); TOTAL CARBON DIOXIDE 26.6 MMOL/L (24-32); eCRCL 63 ML/MIN; eGFR 74 ML/MIN
[2025-01-15] MEDS: K and/or MAG REPLACEMENT MC SCH (06:50)
[2025-01-15] MEDS ORDERED: INSULIN LISPRO 100 UNIT/ML INSULN.PEN MULTI-DOSE SQ SCH (07:00)
[2025-01-15] MEDS: levoTHYROXINE 100mcg tablet PO SCH (07:19)
[2025-01-15] MEDS: docusate sod 100mg capsule PO SCH (07:22)
[2025-01-15] MEDS: calcium carbonate/vitamin D3 tablet PO SCH (07:27)
[2025-01-15] MEDS: clotrimazole topical cream 15gm tube TP SCH (07:38)
[2025-01-15] MEDS: INSULIN LISPRO 100 UNIT/ML INSULN.PEN MULTI-DOSE SQ SCH (07:59)
--- NOTE | 2025-01-15 08:03 | PROGRESS NOTE ---
Daily Progress Note Providers to CC ~ Antibiotic Timeout Antibiotic Ordered?: No Subjective No new complaints. Complains of right hip pain. Objective Vital Signs Date Time Temp Pulse Resp B/P (MAP) Pulse Ox O2 Delivery O2 Flow Rate FiO2 01/15/25 07:37 127 01/15/25 07:08 20 01/15/25 06:00 96.6 139/88 (105) 94 Room Air 01/15/25 00:43 2.0 Result Diagram: 01/15/25 0537 01/15/25 0537 Awake cooperative, in no acute distress. Patient appears much older than her stated age HEENT normocephalic atraumatic extraocular movements are intact Neck supple, no JVD Chest: Clear to auscultation anteriorly Heart: Regular rate rhythm, no murmur or gallop rub Abdomen is soft, nontender, no organomegaly Extremities no cyanosis clubbing or edema Neuro exam is nonfocal Musculoskeletal: Limited movement of the right hip due to pain. Coagulation Studies Laboratory Tests Test 01/14/25 19:56 Prothrombin Time 10.1 SECONDS (9.0-12.0) INR International Normalized Ratio 1.0 INR Activated Partial Thromboplast Time 24 SECONDS (22-32) Coagulation Comments Other Results Medications reviewed Problem\Assessment\Plan 60 years old female with a history of CVA and right hemiparesis, presented to the ER for right hip pain after a fall. [place] to use her walker when she slipped and fell on her right hip # right subcapital femoral neck fracture: Bedrest, pain control as necessary. Aware ortho input. Patient likely to need surgery. #history of CVA right hemiparesis: Patient has a wheelchair-bound at baseline. Continue aspirin and Plavix. # hypertension: Continue amlodipine and Lopressor #NIDDM: Carb controlled diet and hyper/hypoglycemia protocol #hyperlipidemia: Continue atorvastatin # hypothyroidism: Continue levothyroxine # code status: Full code Date of Service: Jan 15, 2025 Billing Provider: MERARI FREEMAN MD Common Visit Codes: [id number] INP/OBS CARE(HIGH) MERARI FREEMAN MD Jan 15, 2025 08:03
[2025-01-15] MEDS ORDERED: HYDROcodone/acetaminophen 5mg/325mg tablet PO PRN (10:30)
[2025-01-15] MEDS: ondansetron/PF 4mg/2ml inj IV PRN (12:23)
[2025-01-15] MEDS ORDERED: ATOR40TA72 PO (12:46)
--- NOTE | 2025-01-15 16:31 | RADIOLOGY REPORT ---
CHEST RADIOGRAPH Indication: Sedation from pain meds, O2 SAT DROPS WHILE PT ASLEEP Technique: Single frontal view of the chest was obtained COMPARISON: DI CHEST,SINGLE VIEW on DOS: 01/14/25 FINDINGS: Lines and Tubes: None Lungs: Clear Pleura: No effusion. No pneumothorax. Cardiomediastinal contours: Unremarkable Bones: No acute osseous abnormality. Median sternotomy. IMPRESSION: No acute disease.
[2025-01-16] VITALS (16 sets, daily range): BP systolic 104–136; BP diastolic 63–85; PULSE 88–118; RESP 13–20; TEMP 97.7–98.5; O2SAT 79–100
[2025-01-16 06:25] LABS: MEAN PLATELET VOLUME 7.7 FL (7.4-10.4); RED CELL DISTRIBUTION WIDTH 12.8 % (11.5-14.5)
--- NOTE | 2025-01-16 06:34 | CONSULTATION REPORT ---
History of Present Illness Providers to CC ~ Reason for Admit\Admit Dx: Right hip fracture Refering MD: Dr Campos History of Present Illness The patient is a 60-year-old woman who fell [place] a bowling alley injuring her right hip. X-rays showed a displaced femoral neck fracture. Consultation was obtained for treatment of femoral neck fracture. She was previously ambulatory. She has a history of diabetes Allergies: Coded Allergies: codeine (Verified Allergy, Unknown, 01/26/19) hydrocodone (Verified Allergy, Unknown, 01/26/19) Uncoded Allergies: BEES (Allergy, Unknown, 08/11/15) VICODINE (Allergy, Unknown, 01/14/25) Home Medications Home Medications Active Clotrimazole 15 Gm Cream.gm. 1 Applic TOP Q12H 7 Days Reported Atorvastatin Calcium 40 Mg Tablet 1 Tab PO HS 30 Days Levothyroxine Sodium 100 Mcg Tablet 1 Tab PO DAILY Amlodipine Besylate 10 Mg Tablet 1 Tab PO DAILY Celecoxib 200 Mg Capsule 1 Tab PO BID Clopidogrel (Clopidogrel Bisulfate) 75 Mg Tablet 1 Tab PO DAILY Melatonin 3 Mg Tablet 5 Mg PO HS Dok (Docusate Sodium) 100 Mg Capsule 1 Tab PO DAILY Lopressor tablet* (Metoprolol Tartrate) 25 Mg Tablet 50 Mg PO DAILY Aspirin EC (Aspirin) 81 Mg Tablet. 1 Tab PO HS Roxicodone (Oxycodone Hcl) 5 Mg Tablet 1 Tab PO DAILY PRN Glimepiride 2 Mg Tablet 1 Tab PO BID TAKE ONLY IF BLOOD SURAG IS ABOVE 95 TAKE TWO TABS IN AM, ONE TAB AT NIGHT Past Family History Family History: Patient reports no known family medical history. Physical Exam Last Vital Signs Recorded: Temperature: 99.4, Source: Oral, Heart Rate: 111, Respiratory Rate: 13, BP: 137/75, Pulse Oximetry: 94, Weight: 78.180 General Appearance: alert, mild distress EENT: PERRL/EOMI Neck: normal inspection Respiratory: lungs clear Extremities She is in Adan's traction in the bed. She is mildly uncomfortable. The skin around the hip area is intact. Distal neurovascular exam is intact. Pelvis is stable and nontender. Results Results/Orders Results/Orders X-rays showed displaced subcapital femoral neck fracture with the intact acetabulum. Diagram Lab Result Diagram: 01/15/25 0537 01/15/25 0537 Assessment/Plan Problems/Diagnosis: (1) Closed right hip fracture Additional Plan This requires hemiarthroplasty for correction. This will be done later today. I discussed with the patient the nature of her injury and why she needs the type of surgery I am recommending. She understands and agrees to proceed. The risks and benefits were discussed as well. Some of the risks include but are not limited to infection, bleeding, nerve or vessel damage and dislocation. She agreed to proceed. She remains NPO at this time. Problem Qualifiers (1) Closed right hip fracture: Qualified Codes: S72.001A - Fracture of unspecified part of neck of right femur, initial encounter for closed fracture CRYSTAL JIM Jr., MD Jan 16, 2025 06:34
[2025-01-16 06:44] LABS: CREATININE 0.54 MG/DL (0.40-0.90); TOTAL CARBON DIOXIDE 26.9 MMOL/L (24-32); eCRCL 94 ML/MIN; eGFR > 90 ML/MIN
--- NOTE | 2025-01-16 14:10 | PROGRESS NOTE ---
Daily Progress Note Providers to CC ~ Antibiotic Timeout Antibiotic Ordered?: No Subjective Complains of pain. Objective Vital Signs Date Time Temp Pulse Resp B/P (MAP) Pulse Ox O2 Delivery O2 Flow Rate FiO2 01/16/25 12:36 98.4 110 01/16/25 10:00 16 129/72 (91) 93 Nasal Cannula 2.0 01/15/25 20:00 36 Result Diagram: 01/16/25 0545 01/16/25 0545 Awake cooperative, in no acute distress. Patient appears much older than her stated age HEENT normocephalic atraumatic extraocular movements are intact Neck supple, no JVD Chest: Clear to auscultation anteriorly Heart: Regular rate rhythm, no murmur or gallop rub Abdomen is soft, nontender, no organomegaly Extremities no cyanosis clubbing or edema Neuro exam : Right hemiparesis, right upper extremity contractures Musculoskeletal: Limited movement of the right hip due to pain. Coagulation Studies Laboratory Tests Test 01/14/25 19:56 Prothrombin Time 10.1 SECONDS (9.0-12.0) INR International Normalized Ratio 1.0 INR Activated Partial Thromboplast Time 24 SECONDS (22-32) Coagulation Comments Other Results Medications reviewed Problem\Assessment\Plan 60 years old female with a history of CVA and right hemiparesis, presented to the ER for right hip pain after a fall. Patient was at a bowling alley trying to use her walker when she slipped and fell on her right hip # Right subcapital femoral neck fracture: Bedrest, pain control as necessary. Patient has been seen by Dr. Healy and is awaiting hemiarthroplasty. #history of CVA right hemiparesis: Patient has a wheelchair-bound at baseline. Continue aspirin and Plavix. # hypertension: Continue amlodipine and Lopressor #NIDDM: Carb controlled diet and hyper/hypoglycemia protocol #hyperlipidemia: Continue atorvastatin # hypothyroidism: Continue levothyroxine # code status: Full code Date of Service: Jan 16, 2025 Billing Provider: MERARI FREEMAN MD Common Visit Codes: [id number] INP/OBS CARE(HIGH) MERARI FREEMAN MD Jan 16, 2025 14:09
[2025-01-16] MEDS ORDERED: vancomycin 1,000mg inj ONE (15:16)
[2025-01-16] MEDS ORDERED: BUPIVAcaine 2.5mg/ml inj 50ml vial (contains preservative) ONE (15:17)
[2025-01-16] MEDS: ceFAZolin 2gm/dext,iso 50mL 50 ML IV ONE (15:27)
[2025-01-16] MEDS: VANCOMYCIN/H2O 1.5g/300mL PB 300 ML IV ONE (15:27)
[2025-01-16] MEDS ORDERED: labetalol 20mg/4ml (5mg/ml) syringe IV PRN (15:30)
[2025-01-16] MEDS: ringers solution, lacted 1,000 ML IV SCH (15:30)
[2025-01-16] MEDS ORDERED: HYDROmorphone/PF 0.2 MG/ML SYRINGE IV PRN (15:30)
[2025-01-16] MEDS ORDERED: ondansetron/PF 4mg/2ml inj IV PRN (15:30)
[2025-01-16] MEDS ORDERED: hydrALAZINE 20mg/ml inj. IV PRN (15:30)
[2025-01-16] MEDS: morphine 4 MG/ML inj SYRINge IV PRN (16:10)
[2025-01-16] MEDS ORDERED: cloNIDine hcl/PF 100mcg/ml inj ONE (16:50)
[2025-01-16] MEDS ORDERED: fentaNYL/PF 50MCG/1 ML 2ML syringe ONE (16:51)
[2025-01-16] MEDS ORDERED: midazolam 1 mg/ML 2ml injection ONE (17:26)
[2025-01-16] MEDS ORDERED: ondansetron/PF 4mg/2ml inj ONE (17:27)
[2025-01-16] MEDS ORDERED: dexamethasone sod phosphate 4mg/ml inj. ONE (17:27)
[2025-01-16] MEDS ORDERED: propofol inj 20 ML IV ONE (17:27)
[2025-01-16] MEDS ORDERED: ROPIVAcaine 0.5% (5mg/ml) 30ml vial ONE (17:27)
[2025-01-16] MEDS ORDERED: LIDOcaine 2% (20mg/ml) 5ml vial ONE (17:27)
[2025-01-16] MEDS ORDERED: rocuronium 10mg/ml inj IV ONE (17:27)
[2025-01-16] MEDS ORDERED: glycopyrrolate 0.2mg/ml inj ONE (18:39)
--- NOTE | 2025-01-16 18:46 | OPERATIVE REPORT ---
Operative Report Providers to ~ Date of Procedure: Jan 16, 2025 Pre-Operative Diagnosis: Hip femoral neck fracture displaced, closed Post-Operative Diagnosis SAME as PRE-Op Procedure Performed Right hip bipolar cemented hemiarthroplasty Surgeon: Iker Healy MD Shopping Inspector None Anesthesiologist: Leo Rocha Type of Anesthesia: General Findings: Subcapital femoral neck fracture Complications None Prosthetics\Implants used: Biomet echo FX size nine standard femoral stem with a 44 mm head standard neck, cemented Estimated Blood Loss: 150 mL Specimen Removed: None Description of Procedure: The patient is a 60-year-old woman who suffered a mechanical fall injuring her right hip. X-rays showed a displaced subcapital femoral neck fracture. Surgery is indicated to restore ambulation. Risks and benefits were discussed with the patient some of which include but are not limited to infection, bleeding, nerve or vessel damage, dislocation, leg length discrepancy, blood clots and even . She agreed to proceed. She was brought to the operating room where the anesthetic was given along with the nerve block. She was placed in the left lateral decubitus position on the o perating table. The leg was prepped and draped in usual manner. A posterolateral Bro incision was made to access the hip. Once the capsule was opened in the femoral neck cut was made and the head was removed and measured. Broaching was then done up to size 10 so a size nine cemented stem was chosen. Broaching was then done followed by placement of the cement restrictor and filling the canal with cement. The stem was then placed and positioned in the femur and held until the cement cured. The head was then placed on the Rosenbaum taper and the hip was relocated. There was excellent range of motion with no instability. The incision was irrigated. Vancomycin powder was then placed in the incision was closed in layers. Sterile dressing was then applied along with a hip wrap. The patient was brought to the recovery room after extubation in stable condition. She tolerated the procedure well. Counts repoted as correct: Yes IKER HEALY Jr., MD Jan 16, 2025 18:46
[2025-01-16] MEDS: acetaminophen 1,000mg/100ml IV 100 ML IV PRN (19:02)
[2025-01-16] MEDS: HYDROmorphone/PF 0.2 MG/ML SYRINGE IV PRN (19:03)
--- NOTE | 2025-01-16 20:25 | RADIOLOGY REPORT ---
CLINICAL HISTORY: post op RIGHT TECHNIQUE: 2 views of the right hip were obtained. COMPARISON: DI HIP UNILATERAL 2-3 VIEWS on DOS: 01/14/25 FINDINGS: There is a new right hip arthroplasty. The hardware is well seated. There is no periprosthetic fracture or lucency. IMPRESSION: Status post right hip arthroplasty.
[2025-01-17] VITALS (7 sets, daily range): BP systolic 97–119; BP diastolic 54–75; PULSE 88–111; RESP 14–20; TEMP 98–99.3; O2SAT 88–95
[2025-01-17 06:03] LABS: MEAN PLATELET VOLUME 7.9 FL (7.4-10.4); RED CELL DISTRIBUTION WIDTH 12.6 % (11.5-14.5)
[2025-01-17 06:24] LABS: CREATININE 0.69 MG/DL (0.40-0.90); TOTAL CARBON DIOXIDE 25.6 MMOL/L (24-32); eCRCL 74 ML/MIN; eGFR 87 ML/MIN
--- NOTE | 2025-01-17 07:18 | PROGRESS NOTE ---
Progress Note Ortho Ortho Post Op Day #: 1 Follow Up ROS ROS No new complaints Exam Exam: Alert and Oreinted x4, Wound clean and dry Problem/Assessment/Plan Assessment\Plan: Cont. Physicial Therapy Problems/Diagnosis: (1) Closed right hip fracture Results/Orders Result Diagram: 01/17/25 0547 01/17/25 0547 Problem Qualifiers (1) Closed right hip fracture: Qualified Codes: S72.001A - Fracture of unspecified part of neck of right femur, initial encounter for closed fracture CRYSTAL JIM Jr., MD Jan 17, 2025 07:18
[2025-01-17] MEDS: albuterol 2.5 MG/3 ML nebule NEB PRN (10:55)
[2025-01-17] MEDS ORDERED: MELA5TAB50 PO (20:28)
[2025-01-17] MEDS: INSULIN LISPRO 100 UNIT/ML INSULN.PEN MULTI-DOSE SQ SCH (20:47)
[2025-01-17] MEDS: insulin glargine (Lantus) pen - multi-dose SQ SCH (20:52)
[2025-01-17] MEDS: [UNRECOGNIZED DRUG - OTHER] PO SCH (21:43)
[2025-01-17] MEDS: MELATONIN 5 MG PO SCH (21:43)
[2025-01-18] VITALS (8 sets, daily range): BP systolic 101–138; BP diastolic 45–81; PULSE 98–138; RESP 14–18; TEMP 97.7–99.2; O2SAT 91–95
[2025-01-18 06:21] LABS: CREATININE 0.72 MG/DL (0.40-0.90); TOTAL CARBON DIOXIDE 29.4 MMOL/L (24-32); eCRCL 70 ML/MIN; eGFR 83 ML/MIN
[2025-01-18 06:30] LABS: MEAN PLATELET VOLUME 8.4 FL (7.4-10.4); RED CELL DISTRIBUTION WIDTH 12.4 % (11.5-14.5)
[2025-01-18] MEDS: HYDROmorphone inj. 0.5 MG/0.5 ML DISP.SYRIN IV ONE (09:50)
--- NOTE | 2025-01-18 11:55 | ELECTROCARDIOGRAPH REPORT ---
[facility] Test Date: 2025-01-18 Test Time: 11:53:13 Pat Name: LENORE HAYES Department: [facility] 4S Patient ID: [facility]-[id number] Room: [place] [id number] A Gender: F Hardware Designer: Ingrid Cervantes : 1965 Requested By: MERARI FREEMAN Order Number: [id number] Reading MD: Dr. ROHAN Encarnacion Measurements Intervals Sandy Rate: 129 P: 9 ME: 170 QRS: 0 QRSD: 67 T: 27 QT: 295 QTc: 433 Interpretive Statements Sinus tachycardia Low voltage, precordial leads Electronically Signed On 01-18-2025 16:50:[address] ROHAN Encarnacion Please click the below link to view image of tracing.
--- NOTE | 2025-01-18 14:04 | PROGRESS NOTE ---
Progress Note Ortho Ortho Post Op Day #: 2 ROS ROS No new complaints Exam Exam: Alert and Oreinted x4 Exam Comments Incision is clean and dry. She is feeling a lot better and has been up with physical therapy today Problem/Assessment/Plan Assessment\Plan: Cont. Physicial Therapy, Anticipate disch to home Problems/Diagnosis: (1) Closed right hip fracture Results/Orders Result Diagram: 01/18/25 0538 01/18/25537 Problem Qualifiers (1) Closed right hip fracture: Qualified Codes: S72.001A - Fracture of unspecified part of neck of right femur, initial encounter for closed fracture CRYSTAL JIM Jr., MD Jan 18, 2025 14:04
[2025-01-18] MEDS ORDERED: magnesium hydroxide 30ml (MOM) UD suspension PO ONE (14:20)
--- NOTE | 2025-01-18 14:25 | DISCHARGE SUMMARY ---
Discharge Summary Providers to CC ~ Discharge Summary Admission Diagnosis: Hip femoral neck fracture displaced, closed Hospital Course DATE OF ADMISSION: 01/14/2025 DATE OF DISCHARGE:01/18/2025 Discharge Diagnosis\Comment: Right subcapital femoral neck fracture Operations\Procedures: right hip bipolar cemented hemiarthroplast Consultants: Dr. Healy Complications: None Condition on DC: Stable for transfer Discharge Summary: Reason for admission: 60 years old female with a history of CVA and right hemiparesis, presented to the ER for right hip pain after a fall. Patient was at a [facility] trying to use her walker when she slipped and fell on her right hip Please refer to admission H&P for further details Hospital course: Patient was admitted on the ortho floor under hospital course as follows. # Right subcapital femoral neck fracture: Patient was placed on bedrest and pain control was address as necessary. Patient underwent right hip bipolar cemented hemiarthroplasty by Dr. Healy. Is doing well postoperatively and has been transferred to [facility] for further PT and care. #history of CVA right hemiparesis: Patient has a wheelchair-bound at baseline. Continued aspirin and Plavix. # hypertension: Continued on amlodipine and Lopressor #NIDDM: Placed on carb controlled diet and hyper/hypoglycemia protocol #hyperlipidemia: Continued atorvastatin # hypothyroidism: Continued levothyroxine # code status: Patient was kept as a Full code as per her request Discharge exam: Examined the patient on the day of discharge. Awake cooperative, in no acute distress. Patient appears much older than her stated age HEENT normocephalic atraumatic extraocular movements are intact Neck supple, no JVD Chest: Clear to auscultation anteriorly Heart: Regular rate rhythm, no murmur or gallop rub Abdomen is soft, nontender, no organomegaly Extremities no cyanosis clubbing or edema Neuro exam : Right hemiparesis, right upper extremity contractures Musculoskeletal: Limited movement of the right hip due to pain. Left leg weakness noted. Discharge exam: I examined the patient on the day of discharge. *Problems/Diagnosis: (1) Closed right hip fracture Status: Acute Total Time Spent on D/C: > 30 Minutes Date of Service: Jan 18, 2025 Billing Provider: MERARI FREEMAN MD Common Visit Codes: 45290-CWP/OBS DISCH DAY >30min Problem Qualifiers (1) Closed right hip fracture: Qualified Codes: S72.001A - Fracture of unspecified part of neck of right femur, initial encounter for closed fracture MERARI FREEMAN MD Jan 18, 2025 14:25
--- NOTE | 2025-01-18 14:29 | Visit Coding Note ---
Date of Service: Jan 17, 2025 Billing Provider: MERARI FREEMAN MD Common Visit Codes: [id number] INP/OBS CARE(HIGH) MERARI FREEMAN MD Jan 18, 2025 14:29
[2025-01-18] MEDS: magnesium hydroxide 30ml (MOM) UD suspension PO ONE (15:08)
--- NOTE | 2025-01-19 03:23 | PROGRESS NOTE ---
DATE: 01/17/2025 DICTATING PHYSICIAN: Tyrone Campos MD SUBJECTIVE: No new complaints. The patient is seen resting comfortably. OBJECTIVE: VITAL SIGNS: Reviewed and are stable. Temp is 98.0, pulse is 88, respirations 16, blood pressure is 119/69, O2 saturation is 88% on 4 liters on exam. HEENT: Normocephalic and atraumatic. Extraocular movements are intact. NECK: Supple. CHEST: Clear to auscultation. No wheezes, rales, or rhonchi. HEART: Regular rate and rhythm. No murmur, gallop or rub. ABDOMEN: Soft, nontender. No organomegaly. EXTREMITIES: No cyanosis, clubbing or edema. NEUROLOGIC: Right hemiparesis/hemiplegia. LABORATORY DATA: White count is 8.8, hemoglobin 12.9, hematocrit is 34.8, platelet count is 130, neutrophils are 90.2%, lymphs are 7.4%. Sodium 140, potassium 4.1, chloride 106, bicarbonate is 25.6, BUN 22, creatinine 0.69, calcium is 8.0, magnesium is 1.8. ASSESSMENT AND PLAN: A 60-year-old female with cerebrovascular accident with right hemiparesis, presented to the ER after she fell. The patient was in a bowling [place] to use her walker when she slipped and fell on her right hip. * Right subcapital femoral neck fracture: The patient underwent hemiarthroplasty by Dr. Healy. Postop care per his recommendations. * History of cerebrovascular accident with right hemiparesis. At baseline, she is wheelchair bound. Continue aspirin and Plavix. * Non-insulin dependent diabetes mellitus: Controlled diet. Hypertension, hyperglycemia protocol. * Hyperlipidemia: Continue atorvastatin. * Hypertension: Continue amlodipine and Lopressor. * Hypothyroidism: Continue levothyroxine. CODE STATUS: The patient wishes to do a full code. Tyrone Campos MD TID: [id number] RECEIPT: [id number] AB/DIV
== END 2025-01-18 16:17 | DRG 521 ==
LOC: ER 18:31 → ED HOLD 20:41 → EDBEDREQ 21:24 → ORTHO 4S 23:19
PROVIDERS: ADMIT Internal Medicine Pulmonary Disease; ATTEND Internal Medicine
PROC: 0SRR0J9 Replacement of Right Hip Joint, Femoral Surface with Synthetic Substitute, Cemented, Open Approach (ICD-10-PCS; principal; 2025-01-16 16:50)
DX: M80.851A Other osteoporosis with current pathological fracture, right femur, initial encounter for fracture (principal); N17.0 Acute kidney failure with tubular necrosis; I69.351 Hemiplegia and hemiparesis following cerebral infarction affecting right dominant side; E11.9 Type 2 diabetes mellitus without complications; I10 Essential (primary) hypertension; E03.9 Hypothyroidism, unspecified; L21.8 Other seborrheic dermatitis; E78.5 Hyperlipidemia, unspecified; W18.39XA Other fall on same level, initial encounter; Z99.3 Dependence on wheelchair; Z88.5 Allergy status to narcotic agent; Z91.030 Bee allergy status; Z79.82 Long term (current) use of aspirin; Z79.899 Other long term (current) drug therapy; Y93.89 Activity, other specified; Y92.89 Other specified places as the place of occurrence of the external cause; Y99.8 Other external cause status
CPT/HCPCS: 36415; 71045; 73502; 73560; 73590; 80048; 80053; 81001; 82306; 82948; 83036; 83735; 84443; 85025; 85610; 85730; 86885; 86900; 86901; 87081; 87088; 93005; 94640; 94760; 96365; 96375; 97110; 97162; 97530; 99283; 99285; A4314; A4615; A4618; A6213; A6258; A6454; A7000; C1713; C1776; G0378; J0131; J0735; J1100; J1171; J1815; J2003; J2250; J2270; J2405; J2704; J2710; J2795; J3010; J3373; J3375; J3490; J7030; J7120

== ENCOUNTER 2025-01-18 19:32 | Emergency (ER) | payer MEDICARE, MEDICAID ==
[~2025-01-18] VITALS: Ht 160 cm; Wt 75.0 kg
[~2025-01-18 19:32] MED LIST changes: +AMLO10TA13 PO; -ATOR-2 PO; +ATOR40TA72 PO; -BACL20TA7 PO; +CELE-127 PO; +CLOP75TA34 PO; -LACT1CAP26 PO; +LEVO100T9 PO; -LEVO125T8 PO; -MELA3TAB39 PO; +MELA5TAB50 PO
[2025-01-18 19:36] VITALS: BP 149/80; PULSE 110; O2SAT 97
--- NOTE | 2025-01-18 19:42 | Physician Documentation ---
History of Present Illness General Stated Complaint: SOB Time Seen by MD: 19:35 OK to notify your PCP?: Yes Primary Medical Doctor: Dr Campos History of Present Illness Initial Comments This is a 60-year-old female who was discharged from our facility not even 3 hours ago, presents for hypoxia at the [facility]. However, the EMS crew did not see any hypoxia. Patient was discharged on 2 L of oxygen that she is 95% on her baseline oxygen. Patient has a no somatic complaints whatsoever. She does not want to be here. She states that a staff at the outside facility told her that she is going to if she did does not not come to the emergency department. She specifically denies any headache, chest pain, difficulty breathing, nausea, vomiting, diarrhea, abdominal pain. She does have her hip pain, she is status post hip surgery. No concern for tobacco, alcohol or illicit substances use Medication Reconciliation Allergies: Coded Allergies: codeine (Verified Allergy, Unknown, 01/26/19) hydrocodone (Verified Allergy, Unknown, 01/26/19) Uncoded Allergies: BEES (Allergy, Unknown, 08/11/15) VICODINE (Allergy, Unknown, 01/14/25) Scheduled Amlodipine Besylate (Amlodipine Besylate), 1 TAB PO DAILY, (Reported) Aspirin (Aspirin EC), 1 TAB PO HS, (Reported) Atorvastatin Calcium (Atorvastatin Calcium), 1 TAB PO HS, (Reported) Celecoxib (Celecoxib), 1 TAB PO BID, (Reported) Clopidogrel Bisulfate (Clopidogrel), 1 TAB PO DAILY, (Reported) Clotrimazole (Clotrimazole), 1 APPLIC TOP Q12H Docusate Sodium (Dok), 1 TAB PO DAILY, (Reported) Glimepiride (Glimepiride), 1 TAB PO BID, (Reported) Levothyroxine Sodium (Levothyroxine Sodium), 1 TAB PO DAILY, (Reported) Melatonin (Melatonin), 2 TAB PO HS, (Reported) Metoprolol Tartrate* (Lopressor tablet*), 50 MG PO DAILY, (Reported) Scheduled PRN Oxycodone Hcl (Roxicodone), 1 TAB PO DAILY PRN for pain, (Reported) Discontinued Medications Atorvastatin Calcium (Atorvastatin Calcium), 40 MG PO HS, (Reported) Discontinued Reason: Prescription changed Baclofen (Baclofen), 1 TAB PO Q8H, (Reported) Discontinued Reason: patient no longer taking Lactobacillus Rhamnosus (Culturelle), 10,000 MMU PO Q12H Discontinued Reason: patient no longer taking Levothyroxine Sodium (Levothyroxine Sodium), 1 TAB PO DAILY Discontinued Reason: patient no longer taking Melatonin (Melatonin), 10 MG PO HS, (Reported) Discontinued Reason: Prescription changed Past Medical History Past Medical History: CVA/TIA/Stroke, Hypertension, UTI, Diabetes, Hyperthyroidism Past Surgical History: Alcohol Use: None Drug Use: none Lives with: Family Lives In: Home Occupation: employed Review of Systems ROS 10 point review of systems was performed and unless noted above in HPI is negative for acute process/complaint. Physical Exam Physical Exam Physical Exam GENERAL: Awake, alert, oriented, GCS 15, no apparent distress, non-toxic appearing, answers questions, follows commands appropriately. Examined in the EMS gurney HEENT: Atraumatic, normocephalic, pupils equal, extraocular muscles intact, sclerae anicteric, mucus membranes moist, oropharynx is clear, no stridor. NECK: supple, full active range of motion, trachea midline, no thyromegaly, no lymphadenopathy, no JVD. CARDIOVASCULAR: regular rate/rhythm, no murmurs/gallops/rubs, Pulses are 2+ in all extremities and symmetric. Capillary refill less than 2 seconds. PULMONARY: Nonlabored, good air movement ,no respiratory distress, speaking in full sentences, clear to auscultation bilaterally, no wheezing, no ronchi, no rales, no accessory muscle use. GASTROINTESTINAL: Soft, non-tender, non-distended, normal active bowel sounds, no organomegaly, no pulsatile masses, no CVA tenderness. NEUROLOGIC: Lucid with normal mental status. Normal facial symmetry. Moves all extremities symmetrically and with purpose. No truncal ataxia. Speech is fluid without evidence of dysarthria or aphasia, no focal deficits appreciated. MUSCULOSKELETAL: There is full range of motion of all extremities. There is no joint pain or joint swelling or joint erythema. There is no muscle pain or tenderness or swelling. EXTREMITIES: warm, well-perfused, no cyanosis, no clubbing, no edema, no acute deformities. Skin: warm, dry, no rashes or lesions, no jaundice, no petechiae orpurpura. No ecchymosis. PSYCHIATRIC: Normal affect, normal insight, normal concentration. Focused exam: [] Progress Results/Orders Results/Orders Orders - CHRISTIANO MOCTEZUMA DO Oxycodone/Acetaminophen Tablet (Percocet (01/18/25 19:35) Medical Decision Making Additional information obtaine: old records, other (EMS) Findings Facility Status: ED Holds, RME process The plan was discussed with the patient, who demonstrates clear understanding of the plan and is in agreement with the plan unless otherwise noted in the chart. All questions have been answered, all concerns were addressed unless otherwise documented. I was available throughout their ED stay for frequent reassessment and questions. Differential Diagnoses (considered and possible or likely): [Incompetence of staff at [facility] acute resultant in falls hypoxia reading, medical screening examination, postoperative pain.] ??Differential Diagnoses (considered and unlikely, not requiring evaluation cu rrently): [The patient denies any somatic complaints whatsoever.] MDM Data Please see HPI for the following: Independent Historians and external Records Review. Historian: [Patient] Independent Historians: ?[EMS, record review] Medication Management: [Reviewed medication list] Social History and determinants: [Reviewed] Please see the body of the note for the following: Any independent interpretations of ECG, imaging studies. All vitals signs/haemodynamics, ordered tests were independently reviewed and interpreted by myself. Nursing triage complaint and vitals reviewed, additional nursing notes were reviewed as available and I agree unless otherwise noted or documented in contradiction in the chart Vital Signs: Independently reviewed Labs: Independently interpreted Imaging: Independently interpreted Old Medical Records: Independently reviewed, see HPI for relevant summary and information Pulse Oximetry: [95% on baseline 2 L] interpreted as [baseline] by me [Field H[employer] Grower: [Regular Rate, Regular rhythm, no ectopy, NSR] reviewed and interpreted by me] Additionally notably showing: [Hemodynamically stable] Laboratory studies reviewed. Earlier today patient had no white count, slightly decreased he moglobin, slightly decreased platelets. 81% neutrophilic predominance. ESR was elevated at 54. Coagulation panel was done on January 14 and was normal. Chemistry panel from two day showed dehydration and elevated glucose. Her hemoglobin A1c is 6.5 consistent with diabetes mellitus. Tests considered but not ordered include: [Hematologic workup and imaging has been considered but does not appear to be necessary given clinical nature of diagnosis] Social Determinants of Health Impact: Patient was evaluated in [facility], or [facility] [place] access to healthcare due to below par ratio of patient to medical providers. [] Comorbid Conditions Impacting Present Evaluation and Care/Treatment: [Postop patient] Management Discussions with other Healthcare Providers: [None] Treatment and Disposition Medication Management (Given or considered): [Laboratory workup has been considered, however the patient has a no somatic complaints.]. See EMR for details Consideration for Hospitalization/Escalation/Deescalation of Care: Admission for observation has been considered, [however the patient is able to tolerate p.o., their symptoms are controlled, they are able to rely on oral medications, and their chief complaint/diagnosis can be managed on outpatient basis.] ?ED Course:?[No clinical deterioration. Does not want to be in the emergency department. Has a no somatic complaints.] ?Shared decision making:?[Patient is hemodynamically stable for discharge back to detention facility with follow with their primary care provider. [ ] Specific and cautious return precautions provided and discussed with full understanding. Any incidental findings were also discussed and follow up recommendations given. [] All questions answered. Patient/family were able to verbalize back return precautions. Patient/family agree to plan. Copies of imaging and laboratory studies were provided.] Code status:?FULL Please see the full Electronic Medical Record for full details of nursing documentation, medications list, other records of complete past medical history and conditions, vital signs, laboratory studies, and any radiologic study interpretations by radiologists. Portions of this note were completed using Nulu dictation software and as a result there may exist minor errors in spelling. I have reviewed elements of past family and social history and agree as included in note. Differential Diagnosis See body of main note for differential diagnosis Departure Disposition: [facility] Impression: Primary Impression: Postoperative pain Additional Impressions: Encounter for medical screening examination On supplemental oxygen by nasal cannula Condition: Stable Additional Instructions: Note to the detention facility. You positive with a must respect patient's autonomy. If the patient does not not want to be transported, coersing them into going by making threats is at best against lighting, at worst patient abuse. Make sure you have sufficient skills to evaluate patient's oxygenation level and do so while patient is on baseline oxygen. If you do not have skills to use pulse oximeter, find somebody who has. Referrals: NO PRIMARY CARE PROVIDER (PCP) Signature Scribe Signature: No scribe Attestation: The note accurately reflects work and decisions made by me.Christiano Moctezuma, 01/18/25 19:45 CHRISTIANO MOCTEZUMA DO Jan 18, 2025 19:42
[2025-01-18 19:44] VITALS: RESP 16
== END 2025-01-18 21:29 ==
LOC: ER 19:32
DX: Z00.00 Encounter for general adult medical examination without abnormal findings (principal); G89.18 Other acute postprocedural pain; E11.9 Type 2 diabetes mellitus without complications; I10 Essential (primary) hypertension; E05.90 Thyrotoxicosis, unspecified without thyrotoxic crisis or storm; Z88.5 Allergy status to narcotic agent; Z87.440 Personal history of urinary (tract) infections; Z86.73 Personal history of transient ischemic attack (TIA), and cerebral infarction without residual deficits; Z79.899 Other long term (current) drug therapy; Z98.890 Other specified postprocedural states
CPT/HCPCS: 99283